=== PATIENT | male | born 1930 | race African-American/Black ===

== ENCOUNTER 2019-02-01 18:19 | Inpatient (IN) | payer MEDICARE, BC ==
[~2019-02-01] VITALS: Ht 175.3 cm; Wt 73.0 kg
[2019-02-01] MEDS ORDERED: MIRT15TA PO (18:26)
[2019-02-01] MEDS ORDERED: SPIR25TA6 PO (18:26)
[2019-02-01] MEDS ORDERED: PRAZ2CAP2 PO (18:26)
[2019-02-01] MEDS ORDERED: ATOR20TA65 PO (18:26)
[2019-02-01] MEDS ORDERED: CARV25TA47 PO (18:26)
[2019-02-01] MEDS ORDERED: NIFE60TA83 PO (18:26)
[2019-02-01] MEDS ORDERED: HYDR12.529 PO (18:26)
[2019-02-01] MEDS ORDERED: MEMA5TAB7 PO (18:26)
[2019-02-01] MEDS ORDERED: ASPI-1159 PO (18:26)
[2019-02-01 19:20] LABS: BASOPHILS % 0.5 % (0.0-2.0); EOSINOPHILS % 3.6 % (0.0-5.0); HEMATOCRIT. 36.3 % (42.0-52.0); HEMOGLOBIN. 11.6 g/dL (14.0-18.0); LYMPHOCYTES % 17.4 % (20.0-50.0); MEAN CORPUSCULAR HEMOGLOBIN 28.5 pg (28.0-32.0); MEAN CORPUSCULAR VOLUME 89.1 fL (80.0-94.0); MONOCYTES % 8.3 % (2.0-8.0); NEUTROPHILS % 70.2 % (40.0-76.0); PLATELET 132 x1000/uL (130-400); RED BLOOD CELL COUNT 4.08 mill/uL (4.7-6.1); RED CELL DISTRIBUTION WIDTH 14.2 % (11.6-14.6)
[2019-02-01 19:25] LABS: CHLORIDE 117 mEq/L (98-107)
[2019-02-02 01:00] VITALS: BP 119/66
[2019-02-02] MEDS: SODIUM CHLORIDE 0.45% 1,000 ML IV SCH ×2 (02:45→18:58)
[2019-02-02 04:00] VITALS: BP 136/58
[2019-02-02] MEDS: PANTOPRAZOLE 40MG DR TABLET PO SCH (06:58)
[2019-02-02 08:00] VITALS: BP 135/64
[2019-02-02] MEDS: ENOXAPARIN 30MG/0.3ML SYR SUBCUT SCH (08:41)
[2019-02-02] MEDS: ASPIRIN 325MG EC TABLET PO SCH (08:41)
[2019-02-02] MEDS: CARVEDILOL 25MG TABLET PO SCH ×2 (08:41→20:15)
[2019-02-02] MEDS ORDERED: ENOXAPARIN 40MG/0.4ML SYR SUBCUT SCH (09:00)
[2019-02-02] MEDS ORDERED: ACETAMINOPHEN 325MG TABLET PO PRN (10:45)
[2019-02-02 12:46] LABS: CREATINE KINASE MB FRACTION 3.3 ng/mL (0.5-3.6)
[2019-02-02 16:00] VITALS: BP 154/59
[2019-02-02 20:00] VITALS: BP 137/60
[2019-02-02 20:29] LABS: CLARITY URINE CLOUDY (CLEAR); COLOR URINE YELLOW (YELLOW); KETONES URINE NEGATIVE (NEGATIVE); LEUKOCYTE ESTERASE URINE 3+ (NEGATIVE); NITRITE URINE POSITIVE (NEGATIVE); OCCULT BLOOD URINE 1+ (NEGATIVE); PROTEIN URINE NEGATIVE (NEGATIVE); SPECIFIC GRAVITY URINE 1.013 (1.005-1.030); UROBILINOGEN URINE 0.2 E.U./dL (0.2-1.0)
[2019-02-02] MEDS: ATORVASTATIN CALCIUM 20MG TABLET PO SCH (21:08)
[2019-02-03] VITALS (7 sets, daily range): BP systolic 106–148; BP diastolic 48–70
[2019-02-03] MEDS: SODIUM CHLORIDE 0.45% 1,000 ML IV SCH ×2 (04:02→18:28)
[2019-02-03 07:12] LABS: BASOPHILS % 0.5 % (0.0-2.0); EOSINOPHILS % 3.9 % (0.0-5.0); HEMATOCRIT. 29.5 % (42.0-52.0); HEMOGLOBIN. 9.5 g/dL (14.0-18.0); LYMPHOCYTES % 20.1 % (20.0-50.0); MEAN CORPUSCULAR HEMOGLOBIN 28.4 pg (28.0-32.0); MEAN PLATELET VOLUME 10.4 fl (7.4-10.4); MONOCYTES % 9.8 % (2.0-8.0); NEUTROPHILS % 65.7 % (40.0-76.0); PLATELET 101 x1000/uL (130-400); RED BLOOD CELL COUNT 3.35 mill/uL (4.7-6.1); RED CELL DISTRIBUTION WIDTH 13.9 % (11.6-14.6)
[2019-02-03] MEDS: ASPIRIN 325MG EC TABLET PO SCH (09:00)
[2019-02-03] MEDS: PANTOPRAZOLE 40MG DR TABLET PO SCH (09:01)
[2019-02-03] MEDS: CARVEDILOL 25MG TABLET PO SCH ×2 (09:01→20:42)
[2019-02-03] MEDS: ENOXAPARIN 30MG/0.3ML SYR SUBCUT SCH (09:02)
[2019-02-03] MEDS: ATORVASTATIN CALCIUM 20MG TABLET PO SCH (20:42)
[2019-02-04 04:00] VITALS: BP 139/67
[2019-02-04] MEDS: SODIUM CHLORIDE 0.45% 1,000 ML IV SCH (05:28)
[2019-02-04 06:04] LABS: BASOPHILS % 0.4 % (0.0-2.0); HEMATOCRIT. 29.4 % (42.0-52.0); HEMOGLOBIN. 9.4 g/dL (14.0-18.0); LYMPHOCYTES % 21.8 % (20.0-50.0); MEAN CORPUSCULAR HEMOGLOBIN 28.3 pg (28.0-32.0); MEAN CORPUSCULAR VOLUME 88.3 fL (80.0-94.0); MEAN PLATELET VOLUME 10.3 fl (7.4-10.4); NEUTROPHILS % 62.8 % (40.0-76.0); PLATELET 99 x1000/uL (130-400); RED BLOOD CELL COUNT 3.34 mill/uL (4.7-6.1); RED CELL DISTRIBUTION WIDTH 13.8 % (11.6-14.6)
[2019-02-04 08:00] VITALS: BP 159/72
[2019-02-04] MEDS: PANTOPRAZOLE 40MG DR TABLET PO SCH (08:15)
[2019-02-04] MEDS: ASPIRIN 81MG TABLET PO SCH (08:41)
[2019-02-04] MEDS: CARVEDILOL 25MG TABLET PO SCH ×2 (08:42→23:07)
[2019-02-04] MEDS: DEXTROSE 5% WATER 1,000 ML IV SCH (10:00)
[2019-02-04 12:00] VITALS: BP 119/52
[2019-02-04] MEDS ORDERED: LEVOFLOXACIN 500MG TABLET PO SCH (12:30)
[2019-02-04 15:59] LABS: VITAMIN B12 SERUM 493 pg/mL (211-911)
[2019-02-04 16:00] VITALS: BP 142/60
[2019-02-04 20:00] VITALS: BP 151/56
[2019-02-04] MEDS: ATORVASTATIN CALCIUM 20MG TABLET PO SCH (23:06)
[2019-02-05] VITALS (7 sets, daily range): BP systolic 90–145; BP diastolic 50–63
[2019-02-05] MEDS: DEXTROSE 5% WATER 1,000 ML IV SCH (02:40)
[2019-02-05 06:34] LABS: BASOPHILS % 0.4 % (0.0-2.0); EOSINOPHILS % 3.9 % (0.0-5.0); HEMATOCRIT. 28.3 % (42.0-52.0); HEMOGLOBIN. 9.4 g/dL (14.0-18.0); LYMPHOCYTES % 21.2 % (20.0-50.0); MEAN CORPUSCULAR HEMOGLOBIN 29.1 pg (28.0-32.0); MEAN CORPUSCULAR VOLUME 87.4 fL (80.0-94.0); MEAN PLATELET VOLUME 10.6 fl (7.4-10.4); MONOCYTES % 12.8 % (2.0-8.0); NEUTROPHILS % 61.7 % (40.0-76.0); PLATELET 98 x1000/uL (130-400); RED BLOOD CELL COUNT 3.24 mill/uL (4.7-6.1); RED CELL DISTRIBUTION WIDTH 13.4 % (11.6-14.6)
[2019-02-05 07:17] LABS: PHOSPHORUS 2.4 mg/dL (2.5-4.9)
[2019-02-05] MEDS ORDERED: POTASSIUM-SODIUM PHOSPHATE POWDER PACKET PO SCH (09:00)
[2019-02-05] MEDS: CARVEDILOL 25MG TABLET PO SCH (09:55)
[2019-02-05] MEDS: PANTOPRAZOLE 40MG DR TABLET PO SCH (09:56)
[2019-02-05] MEDS: ASPIRIN 81MG TABLET PO SCH (09:56)
[2019-02-05] MEDS ORDERED: LEVOFLOXACIN 500MG TABLET PO SCH (11:00)
[2019-02-05] MEDS ORDERED: LEVOFLOXACIN 250MG TABLET PO SCH (11:00)
== END 2019-02-05 20:56 | DRG 205 ==
LOC: ER 18:19 → 7WST 20:07 → EDBEDREQTM 20:19 → EDBEDREQ 20:19 → ENRESERV 22:48 → 7WST 02-02 06:10
PROVIDERS: ADMIT Internal Medicine; ATTEND Internal Medicine
DX: M94.0 Chondrocostal junction syndrome [Tietze] (principal); N17.0 Acute kidney failure with tubular necrosis; E87.0 Hyperosmolality and hypernatremia; N39.0 Urinary tract infection, site not specified; E11.22 Type 2 diabetes mellitus with diabetic chronic kidney disease; E86.0 Dehydration; I12.9 Hypertensive chronic kidney disease with stage 1 through stage 4 chronic kidney disease, or unspecified chronic kidney disease; I25.10 Atherosclerotic heart disease of native coronary artery without angina pectoris; I95.9 Hypotension, unspecified; M54.5 Low back pain; I49.5 Sick sinus syndrome; E78.5 Hyperlipidemia, unspecified; D64.9 Anemia, unspecified; F03.90 Unspecified dementia, unspecified severity, without behavioral disturbance, psychotic disturbance, mood disturbance, and anxiety; G89.29 Other chronic pain; J44.9 Chronic obstructive pulmonary disease, unspecified; K21.9 Gastro-esophageal reflux disease without esophagitis; N28.1 Cyst of kidney, acquired; N18.3 Chronic kidney disease, stage 3 (moderate); B96.89 Other specified bacterial agents as the cause of diseases classified elsewhere; F17.200 Nicotine dependence, unspecified, uncomplicated; I25.2 Old myocardial infarction; Z79.82 Long term (current) use of aspirin; Z79.899 Other long term (current) drug therapy; Z82.49 Family history of ischemic heart disease and other diseases of the circulatory system; Z88.0 Allergy status to penicillin; Z95.0 Presence of cardiac pacemaker
CPT/HCPCS: 36415; 71045; 76770; 80048; 82140; 82550; 82553; 82607; 82962; 83540; 83550; 83735; 83880; 84100; 84443; 84484; 87077; 87186; 93005; 93306; 96365; 96375; 97162; 97166; 99291; J1650; J7070